=== PATIENT | female | born 1990 | race American Indian/Alaskan Native ===

== ENCOUNTER 2022-05-27 14:17 | Emergency (ER) | payer SELFPAY ==
[2022-05-27 16:02] VITALS: BP 127/74
== END 2022-05-27 21:00 | disposition left against medical advice (07) ==
LOC: ED 14:17
DX: R11.10 Vomiting, unspecified (principal); R50.9 Fever, unspecified; Z53.21 Procedure and treatment not carried out due to patient leaving prior to being seen by health care provider